=== PATIENT | female | born 1960 | race Caucasian/White ===

== ENCOUNTER 2021-12-05 21:56 | Inpatient (IN) ==
[2021-12-05] MEDS ORDERED: TENECTEPLASE 50 MG VIAL KIT 5 MG/ML (reconstituted) IV ONE ×2 (23:28→23:45)
[2021-12-06 00:34] LABS: Hematocrit 44 % (35-47); Hemoglobin 14.2 g/dL (12.0-16.0); Mean Corpuscular HGB Conc 32 g/dL (31-36); Mean Corpuscular Hemoglobin 29 pg (27-31); Mean Corpuscular Volume 91 fL (80-97); Mean Platelet Volume 8.9 fL (7.4-10.4); Platelet Count 187 10^3/uL (150-450); Red Blood Count 4.87 10^6 /uL (3.70-4.87); Red Cell Distribution Width 14 % (10-15); White Blood Count 6.4 10^3/uL (3.5-10.8)
[2021-12-06 00:57] LABS: Activated Partial Thrombo Time 22.7 seconds (26.0-38.0); INR 0.95 (0.89-1.11)
[2021-12-06] MEDS ORDERED: Iodixanol (CONTRAST) 320 MG/ML 100 ML SDV IV ONE (01:14)
[2021-12-06 01:15] LABS: Albumin 3.5 g/dL (3.2-5.2); CO2 Carbon Dioxide 22 mmol/L (22-32); Calcium 7.5 mg/dL (8.6-10.3); Chloride 104 mmol/L (101-111); Sodium 134 mmol/L (135-145)
[2021-12-06 01:21] LABS: ALT 18 U/L (7-52); Albumin/Globulin Ratio 1.3 (1-3); Alkaline Phosphatase 92 U/L (35-149); Blood Urea Nitrogen 17 mg/dL (6-24); Cholesterol 192 mg/dL; Globulin 2.7 g/dL (2-4); Glucose 304 mg/dL (70-100); HDL Cholesterol 34.4 mg/dL; LDL Cholesterol 123 mg/dL; Total Protein 6.2 g/dL (6.4-8.9); Triglycerides 174 mg/dL; eGFR CKD-EPI 101.1 (>60)
[2021-12-06 01:22] LABS: Anion Gap 8 mmol/L (2-11)
[2021-12-06 01:36] LABS: ABS Basophils 0.1 10^3/ul (0-0.2); ABS Eosinophils 0.2 10^3/ul (0-0.6); ABS Lymphocytes 1.4 10^3/ul (1.0-4.8); ABS Monocytes 0.7 10^3/ul (0-0.8); ABS Neutrophils 4.1 10^3/ul (1.5-7.7); Eosinophil % 2.4 %
[2021-12-06] MEDS ORDERED: Dextrose 50% Syringe 50 ml 25 GM/50 ML SYRINGE IV PUSH PRN (03:02)
[2021-12-06] MEDS ORDERED: Labetalol IV 5 MG/ML 20 ml VIAL IV PUSH PRN (03:04)
[2021-12-06 06:43] LABS: ABS Basophils 0.1 10^3/ul (0-0.2); ABS Eosinophils 0.1 10^3/ul (0-0.6); ABS Lymphocytes 1.2 10^3/ul (1.0-4.8); ABS Monocytes 0.6 10^3/ul (0-0.8); ABS Neutrophils 4.6 10^3/ul (1.5-7.7); Eosinophil % 1.9 %; Hematocrit 46 % (35-47); Hemoglobin 14.8 g/dL (12.0-16.0); Lymphocyte % 18.6 %; Mean Corpuscular HGB Conc 32 g/dL (31-36); Mean Corpuscular Hemoglobin 29 pg (27-31); Mean Corpuscular Volume 91 fL (80-97); Mean Platelet Volume 9.3 fL (7.4-10.4); Platelet Count 214 10^3/uL (150-450); Red Blood Count 5.07 10^6 /uL (3.70-4.87); Red Cell Distribution Width 15 % (10-15); White Blood Count 6.6 10^3/uL (3.5-10.8)
[2021-12-06 07:12] LABS: Blood Urea Nitrogen 17 mg/dL (6-24); CO2 Carbon Dioxide 25 mmol/L (22-32); Calcium 7.9 mg/dL (8.6-10.3); Chloride 101 mmol/L (101-111); Cholesterol 228 mg/dL; Glucose 255 mg/dL (70-100); HDL Cholesterol 43.1 mg/dL; LDL Cholesterol 154 mg/dL; Sodium 135 mmol/L (135-145); Triglycerides 154 mg/dL; eGFR CKD-EPI 99.3 (>60)
[2021-12-06 07:19] LABS: Anion Gap 9 mmol/L (2-11)
[2021-12-06] MEDS: cycloSPORINE Modfied 100mg CAP PO SCH (10:36)
[2021-12-06] MEDS: Calcium Carb (TUMS) 500 mg CHEW TAB PO SCH (10:37)
[2021-12-06] MEDS: Sodium Bicarb 650 mg (ANTACID) TAB PO SCH ×3 (10:37→21:46)
[2021-12-06] MEDS: Sulfamethox/Trimethoprim SS TAB 400/80 mg PO SCH ×2 (10:37→21:47)
[2021-12-06 17:02] LABS: Urine Appearance Cloudy; Urine Bilirubin Negative (Negative); Urine Blood Negative (Negative); Urine Color Yellow; Urine Glucose 1+(50 mg/dL) (Negative); Urine Ketones Negative (Negative); Urine Nitrite Negative (Negative); Urine Protein Negative (Negative); Urine Specific Gravity 1.039 (1.002-1.030); Urine Urobilinogen Positive (Negative)
[2021-12-06 18:22] LABS: Urine Bacteria 1+ (Absent); Urine Red Blood Cell 2+(6-10/hpf) (Absent); Urine Squamous Epithelial Cell Present (Absent); Urine White Blood Cell 1+(6-10/hpf) (Absent)
[2021-12-07] MEDS: cycloSPORINE Modfied 100mg CAP PO SCH ×3 (01:06→22:03)
[2021-12-07 05:50] LABS: Hematocrit 47 % (35-47); Mean Corpuscular HGB Conc 32 g/dL (31-36); Mean Corpuscular Hemoglobin 29 pg (27-31); Mean Corpuscular Volume 91 fL (80-97); Mean Platelet Volume 8.6 fL (7.4-10.4); Platelet Count 207 10^3/uL (150-450); Red Blood Count 5.18 10^6 /uL (3.70-4.87); Red Cell Distribution Width 14 % (10-15); White Blood Count 6.3 10^3/uL (3.5-10.8)
[2021-12-07 06:25] LABS: Albumin 3.8 g/dL (3.2-5.2); Albumin/Globulin Ratio 1.5 (1-3); Calcium 8.3 mg/dL (8.6-10.3); Globulin 2.5 g/dL (2-4); Potassium 4.4 mmol/L (3.5-5.0); Total Bilirubin 0.7 mg/dL (0.2-1.0); Total Protein 6.3 g/dL (6.4-8.9)
[2021-12-07] MEDS: Sulfamethox/Trimethoprim SS TAB 400/80 mg PO SCH ×2 (09:39→22:02)
[2021-12-07] MEDS: Sodium Bicarb 650 mg (ANTACID) TAB PO SCH ×3 (09:39→22:02)
[2021-12-07] MEDS: Calcium Carb (TUMS) 500 mg CHEW TAB PO SCH (09:39)
[2021-12-07] MEDS: DULoxetine DR 60 mg CAP PO SCH (17:15)
[2021-12-07] MEDS ORDERED: Insulin GLARGINE 100 un/ml 10 ml VIAL SUBCUT SCH (21:00)
[2021-12-08] MEDS: Calcium Carb (TUMS) 500 mg CHEW TAB PO SCH (10:56)
[2021-12-08] MEDS: Sodium Bicarb 650 mg (ANTACID) TAB PO SCH ×3 (10:57→21:47)
[2021-12-08] MEDS: DULoxetine DR 60 mg CAP PO SCH (10:57)
[2021-12-08] MEDS: cycloSPORINE Modfied 100mg CAP PO SCH ×2 (11:09→21:45)
[2021-12-08] MEDS: Sulfamethox/Trimethoprim SS TAB 400/80 mg PO SCH ×2 (12:04→23:23)
[2021-12-08] MEDS: Insulin GLARGINE 100 un/ml 10 ml VIAL SUBCUT SCH (22:12)
[2021-12-09] MEDS ORDERED: Lidocaine PATCH 5% PATCH TRANSDERM ONE (09:17)
[2021-12-09] MEDS: Sodium Bicarb 650 mg (ANTACID) TAB PO SCH ×3 (09:35→20:55)
[2021-12-09] MEDS: DULoxetine DR 60 mg CAP PO SCH (09:36)
[2021-12-09] MEDS: Calcium Carb (TUMS) 500 mg CHEW TAB PO SCH (09:36)
[2021-12-09] MEDS: cycloSPORINE Modfied 100mg CAP PO SCH ×2 (09:38→20:56)
[2021-12-09] MEDS: Sulfamethox/Trimethoprim SS TAB 400/80 mg PO SCH ×2 (09:42→21:05)
[2021-12-09] MEDS: Insulin GLARGINE 100 un/ml 10 ml VIAL SUBCUT SCH (20:55)
[2021-12-10] MEDS: DULoxetine DR 60 mg CAP PO SCH (09:12)
[2021-12-10] MEDS: Sodium Bicarb 650 mg (ANTACID) TAB PO SCH ×3 (09:12→20:33)
[2021-12-10] MEDS: cycloSPORINE Modfied 100mg CAP PO SCH ×2 (09:13→20:34)
[2021-12-10] MEDS: Calcium Carb (TUMS) 500 mg CHEW TAB PO SCH (09:13)
[2021-12-10] MEDS: Sulfamethox/Trimethoprim SS TAB 400/80 mg PO SCH ×2 (09:15→20:35)
[2021-12-10] MEDS ORDERED: Lidocaine PATCH 5% PATCH TRANSDERM PRN (14:11)
[2021-12-10] MEDS ORDERED: Flumazenil 0.5 mg/5 ml 0.1 MG/ML 5 ml VIAL ONE (14:36)
[2021-12-10] MEDS ORDERED: Midazolam 5 mg/5 ml VIAL 1 mg/ml 5 ml VIAL (5 mg) ONE (14:36)
[2021-12-10] MEDS ORDERED: Naloxone 0.4 mg VIAL 0.4 mg/ml 1 ml VIAL ONE (14:36)
[2021-12-10] MEDS ORDERED: fentaNYL 100 mcg/2 ml 50 MCG/ML VIAL ONE (14:36)
[2021-12-10] MEDS ORDERED: Enoxaparin 30 MG/0.3 ML SYR SUBCUT SCH (19:00)
[2021-12-10] MEDS: Insulin GLARGINE 100 un/ml 10 ml VIAL SUBCUT SCH (20:35)
[2021-12-11] MEDS ORDERED: Lidocaine 1% MPF 5 ML VIAL ONE (08:07)
[2021-12-11] MEDS: DULoxetine DR 60 mg CAP PO SCH (09:51)
[2021-12-11] MEDS: Sodium Bicarb 650 mg (ANTACID) TAB PO SCH ×3 (09:51→21:37)
[2021-12-11] MEDS: Calcium Carb (TUMS) 500 mg CHEW TAB PO SCH (09:52)
[2021-12-11] MEDS: cycloSPORINE Modfied 100mg CAP PO SCH ×2 (09:53→21:36)
[2021-12-11] MEDS: Sulfamethox/Trimethoprim SS TAB 400/80 mg PO SCH ×2 (09:54→21:36)
[2021-12-11] MEDS ORDERED: Insulin GLARGINE 100 un/ml 10 ml VIAL SUBCUT SCH (21:00)
[2021-12-11] MEDS: Enoxaparin 30 MG/0.3 ML SYR SUBCUT SCH (21:38)
[2021-12-12] MEDS: Calcium Carb (TUMS) 500 mg CHEW TAB PO SCH (09:28)
[2021-12-12] MEDS: DULoxetine DR 60 mg CAP PO SCH (09:29)
[2021-12-12] MEDS: Sodium Bicarb 650 mg (ANTACID) TAB PO SCH ×3 (09:29→21:05)
[2021-12-12] MEDS: Sulfamethox/Trimethoprim SS TAB 400/80 mg PO SCH ×2 (09:39→21:05)
[2021-12-12] MEDS: cycloSPORINE Modfied 100mg CAP PO SCH ×2 (09:40→21:06)
[2021-12-12] MEDS ORDERED: Morphine ORAL.SOLN 10 mg 2 mg/ml UDC 5 ml (10 mg) PO PRN (11:21)
[2021-12-12 14:53] LABS: Urine Appearance Clear; Urine Bilirubin Negative (Negative); Urine Blood Negative (Negative); Urine Color Yellow; Urine Glucose 3+(>=500 mg/dL) (Negative); Urine Ketones Negative (Negative); Urine Nitrite Negative (Negative); Urine Protein Negative (Negative); Urine Specific Gravity 1.021 (1.002-1.030); Urine Urobilinogen Negative (Negative)
[2021-12-12 14:56] LABS: Urine Bacteria Absent (Absent); Urine Red Blood Cell Trace(0-2/hpf) (Absent); Urine Squamous Epithelial Cell Present (Absent); Urine White Blood Cell 1+(6-10/hpf) (Absent)
[2021-12-12] MEDS ORDERED: Insulin GLARGINE 100 un/ml 10 ml VIAL SUBCUT SCH (21:00)
[2021-12-12] MEDS: Enoxaparin 30 MG/0.3 ML SYR SUBCUT SCH (21:05)
[2021-12-13] MEDS: Calcium Carb (TUMS) 500 mg CHEW TAB PO SCH (07:40)
[2021-12-13] MEDS: Sodium Bicarb 650 mg (ANTACID) TAB PO SCH ×3 (07:40→20:05)
[2021-12-13] MEDS: DULoxetine DR 60 mg CAP PO SCH (07:40)
[2021-12-13] MEDS: cycloSPORINE Modfied 100mg CAP PO SCH ×2 (07:41→20:04)
[2021-12-13] MEDS: Sulfamethox/Trimethoprim SS TAB 400/80 mg PO SCH ×2 (07:41→20:05)
[2021-12-13] MEDS: Insulin GLARGINE 100 un/ml 10 ml VIAL SUBCUT SCH (20:04)
[2021-12-13] MEDS: Enoxaparin 30 MG/0.3 ML SYR SUBCUT SCH (20:04)
[2021-12-14] MEDS: DULoxetine DR 60 mg CAP PO SCH (08:41)
[2021-12-14] MEDS: Sodium Bicarb 650 mg (ANTACID) TAB PO SCH ×3 (08:41→20:08)
[2021-12-14] MEDS: Sulfamethox/Trimethoprim SS TAB 400/80 mg PO SCH ×2 (08:41→20:08)
[2021-12-14] MEDS: cycloSPORINE Modfied 100mg CAP PO SCH ×2 (08:41→20:09)
[2021-12-14] MEDS: Calcium Carb (TUMS) 500 mg CHEW TAB PO SCH (08:41)
[2021-12-14] MEDS: Insulin GLARGINE 100 un/ml 10 ml VIAL SUBCUT SCH (20:09)
[2021-12-14] MEDS: Enoxaparin 30 MG/0.3 ML SYR SUBCUT SCH (20:10)
[2021-12-15] MEDS: Sodium Bicarb 650 mg (ANTACID) TAB PO SCH ×3 (08:23→20:39)
[2021-12-15] MEDS: Sulfamethox/Trimethoprim SS TAB 400/80 mg PO SCH ×2 (08:23→20:38)
[2021-12-15] MEDS: DULoxetine DR 60 mg CAP PO SCH (08:24)
[2021-12-15] MEDS: cycloSPORINE Modfied 100mg CAP PO SCH ×2 (08:24→20:37)
[2021-12-15] MEDS: Calcium Carb (TUMS) 500 mg CHEW TAB PO SCH (08:24)
[2021-12-15] MEDS ORDERED: Acetaminophen IV 1 GM/100ML 1,000 MG/100 ML BAG IV PRN (11:37)
[2021-12-15 18:33] LABS: Ferritin 352.3 ng/mL (11-307)
[2021-12-15 18:36] LABS: Folate 13.24 ng/mL (5.90-24.80)
[2021-12-15 18:40] LABS: Vitamin D Total 25(OH) 64.1 ng/mL (20-50)
[2021-12-15] MEDS: Enoxaparin 30 MG/0.3 ML SYR SUBCUT SCH (20:40)
[2021-12-15] MEDS ORDERED: Insulin GLARGINE 100 un/ml 10 ml VIAL SUBCUT SCH (21:00)
[2021-12-15 21:48] LABS: Rapid COVID-19 Molecular Undetected (Undetected)
[2021-12-16 06:39] LABS: Hematocrit 39 % (35-47); Hemoglobin 12.6 g/dL (12.0-16.0); Platelet Count 178 10^3/uL (150-450)
[2021-12-16 06:54] LABS: eGFR CKD-EPI 89.7 (>60)
[2021-12-16] MEDS: cycloSPORINE Modfied 100mg CAP PO SCH (10:18)
[2021-12-16] MEDS: Sulfamethox/Trimethoprim SS TAB 400/80 mg PO SCH (10:19)
[2021-12-16] MEDS: DULoxetine DR 60 mg CAP PO SCH (10:20)
[2021-12-16] MEDS: Sodium Bicarb 650 mg (ANTACID) TAB PO SCH (10:22)
[2021-12-16] MEDS: Calcium Carb (TUMS) 500 mg CHEW TAB PO SCH (10:22)
[2021-12-16 19:24] VITALS: BP 124/68
[2021-12-16] MEDS ORDERED: Insulin GLARGINE 100 un/ml 10 ml VIAL SUBCUT SCH (21:00)
== END 2021-12-16 13:40 | DRG 45 ==
LOC: ED 21:56 → SUATTDRO 12-06 02:56 → EDHOLD 12-06 02:56 → ICU 12-06 03:54 → MEDTELE 12-07 23:01
PROVIDERS: ADMIT Internal Medicine Critical Care Medicine; ATTEND Internal Medicine

== ENCOUNTER 2023-09-01 06:27 | Inpatient (IN) ==
[2023-09-01 07:03] LABS: Venous Bicarbonate HCO3 22.7 mmol/L (24-28)
[2023-09-01 07:06] LABS: Hematocrit 46.1 % (35-45); Hemoglobin 15.1 g/dL (11.5-14.3); Mean Corpuscular Hemoglobin 30.9 pg (27-33); Mean Corpuscular Hgb Conc 32.9 g/dL (31-36); Mean Corpuscular Volume 94.1 fL (80-97); Platelet Count 251 10^3/uL (150-450); Red Blood Count 4.89 10^6/uL (3.63-4.92); Red Cell Distribution Width 18.1 % (12-17); White Blood Count 9.4 10^3/uL (3.8-11.8)
[2023-09-01] MEDS: Piperacillin/Tazobac 3.375 BAG 3.375 GM/100 ML BAG IV ONE (07:10)
[2023-09-01 07:31] LABS: Albumin 4.1 g/dL (3.2-5.2); Albumin/Globulin Ratio 1.3 (1-3); C Reactive Protein 3.58 mg/L (<8.01); Creatinine, Serum 0.77 mg/dL (0.51-0.95); Globulin 3.2 g/dL (2-4); Potassium 4.6 mmol/L (3.5-5.0); Total Bilirubin 1.8 mg/dL (0.2-1.0); Total Protein 7.3 g/dL (6.4-8.9); eGFR CKD-EPI 87.2 (>60)
[2023-09-01 07:33] LABS: INR 1.05 (0.83-1.13)
[2023-09-01] MEDS: Lactated Ringers 1000 ml BAG 1,000 ML IV ONE (07:35)
[2023-09-01] MEDS: Vancomycin 1,000 MG in NS 0.9% 250 ml 250 ML IVPB ONE (07:35)
[2023-09-01 08:31] LABS: ABS Eosinophils 0.1 10^3/uL (0.0-0.5); ABS Lymphocytes 0.5 10^3/uL (1.0-4.8); ABS Monocytes 0.2 10^3/uL (0.0-0.9); ABS Neutrophils 8.5 10^3/uL (1.5-7.6); Eosinophil % 1.4 %; Lymphocyte % 5.6 %
[2023-09-01] MEDS: Albuterol/Ipratropium NEB.SOL (2.5/0.5 MG) 3 ML NEB.SOLN INH ONE (08:38)
[2023-09-01 08:48] LABS: High Sensitivity Troponin 1 Hr 16 pg/mL (<15)
[2023-09-01] MEDS: Iodixanol (CONTRAST) 320 MG/ML 100 ML SDV IV ONE (09:21)
[2023-09-01] MEDS: Magnesium Sulfate 2 gm BAG 2 GM/50 ML BAG IVPB ONE (10:23)
[2023-09-01] MEDS ORDERED: Albuterol/Ipratropium NEB.SOL (2.5/0.5 MG) 3 ML NEB.SOLN INH PRN (11:26)
[2023-09-01] MEDS: Enoxaparin 40 MG/0.4 ML SYR SUBCUT SCH (11:41)
[2023-09-01] MEDS ORDERED: Dextrose 50% Syringe 50 ml 25 GM/50 ML SYRINGE IV PUSH PRN (12:13)
[2023-09-01] MEDS ORDERED: Zosyn per Pharmacy NOTE FOLLOW UP SCH (13:00)
[2023-09-01] MEDS ORDERED: Vancomycin per Pharmacy 1 EA NOTE FOLLOW UP SCH (14:00)
[2023-09-01] MEDS: Hydrocortisone INJ 100 MG/2ML 2 ML VIAL IV SCH (14:53)
[2023-09-01] MEDS: ZOSYN 3.375 GM Q8H per EXTENDED INFUSION IV SCH ×2 (14:53→22:54)
[2023-09-01] MEDS: Sodium Bicarb 650 mg (ANTACID) TAB PO SCH (14:53)
[2023-09-01] MEDS: CYCLOSPORINE 25 MG PO SCH (16:46)
[2023-09-01] MEDS: Vancomycin 1000 MG in NS 0.9% 250 ML IVPB SCH (20:19)
[2023-09-01] MEDS: DULoxetine DR 60 mg CAP PO SCH (20:21)
[2023-09-02 05:52] LABS: ABS Lymphocytes 0.5 10^3/uL (1.0-4.8); ABS Monocytes 0.6 10^3/uL (0.0-0.9); ABS Neutrophils 13.2 10^3/uL (1.5-7.6); ABS Nucleated RBC 0.01 10^3/ul; Hematocrit 34.9 % (35-45); Hemoglobin 11.1 g/dL (11.5-14.3); Lymphocyte % 3.7 %; Mean Corpuscular Hemoglobin 29.6 pg (27-33); Mean Corpuscular Hgb Conc 31.9 g/dL (31-36); Mean Corpuscular Volume 92.8 fL (80-97); Mean Platelet Volume 9.5 fL (7.5-11.2); Platelet Count 145 10^3/uL (150-450); Red Blood Count 3.77 10^6/uL (3.63-4.92); Red Cell Distribution Width 18.2 % (12-17); White Blood Count 14.4 10^3/uL (3.8-11.8)
[2023-09-02 06:09] LABS: Urine Appearance Clear; Urine Bilirubin Negative (Negative); Urine Blood Negative (Negative); Urine Color Yellow; Urine Glucose 2+ (>=150 mg/dL) (Negative); Urine Ketones Trace (Negative); Urine Nitrite Negative (Negative); Urine Protein 1+ (>=30 mg/dL) (Negative); Urine Specific Gravity 1.036 (1.002-1.030); Urine Urobilinogen Negative (Negative); Urine pH 5.5 (5.0-8.0)
[2023-09-02 06:10] LABS: Urine Bacteria Absent /HPF (Absent); Urine Red Blood Cell Trace(0-2/hpf) /HPF (0-Trace); Urine Squamous Epithelial Cell Present /HPF (Absent); Urine White Blood Cell Trace(0-5/hpf) /HPF (0-Trace)
[2023-09-02 06:44] LABS: Calcium 6.2 mg/dL (8.6-10.3); Creatinine, Serum 0.88 mg/dL (0.51-0.95); Magnesium 2.3 mg/dL (1.9-2.7); Potassium 4.7 mmol/L (3.5-5.0); eGFR CKD-EPI 74.3 (>60)
[2023-09-02] MEDS: CALCIUM GLUCONATE 1GM/50ML NS 1 GM/50 ML BAG IV SCH (08:34)
[2023-09-02] MEDS: Furosemide 20 mg/2 ml IV VIAL IV ONE ×2 (11:03→12:46)
[2023-09-02] MEDS: Sulfur Hexaflouride MICROSPHR 25 MG VIAL IV ONE (12:33)
[2023-09-02] MEDS: cefTRIAXone 2 gm/50 mL D5W 2 GM/50 ML BAG IV SCH (12:50)
[2023-09-02] MEDS: Azithromycin 500 mg/250 ml NS 500 MG/250 ML BAG IVPB SCH (12:50)
[2023-09-02] MEDS: Insulin GLARGINE 100 un/ml 10 ml VIAL SUBCUT SCH (12:51)
[2023-09-02] MEDS ORDERED: Enoxaparin 60 MG/0.6 ML SYR SUBCUT SCH (21:00)
[2023-09-03 05:21] LABS: ABS Eosinophils 0.2 10^3/uL (0.0-0.5); ABS Lymphocytes 1.4 10^3/uL (1.0-4.8); ABS Monocytes 0.8 10^3/uL (0.0-0.9); ABS Neutrophils 9.4 10^3/uL (1.5-7.6); Eosinophil % 1.7 %; Hematocrit 35.2 % (35-45); Hemoglobin 11.5 g/dL (11.5-14.3); Lymphocyte % 12.1 %; Mean Corpuscular Hemoglobin 30.4 pg (27-33); Mean Corpuscular Hgb Conc 32.8 g/dL (31-36); Mean Corpuscular Volume 92.7 fL (80-97); Mean Platelet Volume 9.3 fL (7.5-11.2); Platelet Count 147 10^3/uL (150-450); Red Blood Count 3.79 10^6/uL (3.63-4.92); Red Cell Distribution Width 18.2 % (12-17); White Blood Count 11.9 10^3/uL (3.8-11.8)
[2023-09-03 06:04] LABS: Calcium 6.4 mg/dL (8.6-10.3); Creatinine, Serum 1.03 mg/dL (0.51-0.95); Magnesium 2.2 mg/dL (1.9-2.7); Potassium 3.8 mmol/L (3.5-5.0); eGFR CKD-EPI 61.5 (>60)
[2023-09-03] MEDS: CALCIUM GLUCONATE 1GM/50ML NS 1 GM/50 ML BAG IV SCH (07:46)
[2023-09-03] MEDS ORDERED: Vancomycin Trough Check NOTE FOLLOW UP ONE (08:30)
[2023-09-03] MEDS ORDERED: Metoprolol Tartrate 5 mg VIAL 5 ml VIAL (1 mg/ml) IV PRN ×2 (09:00→09:15)
[2023-09-03] MEDS ORDERED: cefTRIAXone 1 gm/50 mL D5W 1 GM/50 ML BAG IV SCH (09:00)
[2023-09-03] MEDS: Metoprolol Tartrate 5 mg VIAL 5 ml VIAL (1 mg/ml) IV ONE (10:51)
[2023-09-03] MEDS: Calcium Carb (TUMS) 500 mg CHEW TAB PO SCH (10:51)
[2023-09-03] MEDS: Enoxaparin 40 MG/0.4 ML SYR SUBCUT SCH (10:52)
[2023-09-03 13:16] LABS: Vitamin D Total 25(OH) 47.6 ng/mL (20-50)
[2023-09-03] MEDS: cefTRIAXone 1 GM ONETIME (ADVAN) IVPB SCH (13:36)
[2023-09-03 13:38] LABS: Calcium (PTH Intact) 6.4 mg/dL (8.6-10.3)
[2023-09-03] MEDS: cefTRIAXone 1 gm/50 mL D5W 1 GM/50 ML BAG IV SCH (13:42)
[2023-09-03] MEDS: Enoxaparin 80 MG/0.8 ML SYR SUBCUT SCH (21:08)
[2023-09-04 08:36] LABS: Hematocrit 33.7 % (35-45); Hemoglobin 10.8 g/dL (11.5-14.3); Mean Corpuscular Hemoglobin 30.5 pg (27-33); Mean Corpuscular Hgb Conc 32.1 g/dL (31-36); Mean Corpuscular Volume 95.1 fL (80-97); Mean Platelet Volume 9.3 fL (7.5-11.2); Platelet Count 132 10^3/uL (150-450); Red Blood Count 3.54 10^6/uL (3.63-4.92); White Blood Count 6.8 10^3/uL (3.8-11.8)
[2023-09-04 08:58] LABS: Potassium 4.4 mmol/L (3.5-5.0)
[2023-09-04 09:00] LABS: Calcium 6.4 mg/dL (8.6-10.3); Creatinine, Serum 0.73 mg/dL (0.51-0.95); Magnesium 2.2 mg/dL (1.9-2.7); eGFR CKD-EPI 92.9 (>60)
[2023-09-04 10:12] VITALS: BP 156/108
[2023-09-04] MEDS: CALCIUM GLUCONATE 1GM/50ML NS 1 GM/50 ML BAG IV SCH (10:59)
[2023-09-04] MEDS: Calcium Citrate 200 mg TAB PO SCH (11:06)
[2023-09-04] MEDS: Azithromycin 500 mg/250 ml NS 500 MG/250 ML BAG IVPB ONE (13:21)
== END 2023-09-04 15:05 | disposition home or self-care (01) | DRG 720 ==
LOC: ED 06:27 → EDHOLD 10:30 → SUATTDRO 10:30 → EDHOLD 15:15 → MED 16:00
PROVIDERS: ADMIT Internal Medicine; ATTEND Student in an Organized Health Care Education/Training Program